=== PATIENT | male | born 1980 | race African-American/Black ===

== ENCOUNTER 2017-02-07 13:01 | Emergency (ER) | payer OTHER ==
[~2017-02-07] VITALS: Ht 170.2 cm; Wt 98.0 kg
[~2017-02-07 13:01] MED LIST: BACTRIM DS TAB1 EACH PO; IBUPROFEN 600600 M1 PO
[2017-02-07] MEDS ORDERED: BACTRIM DS TAB1 EACH PO (13:46)
[2017-02-07] MEDS ORDERED: ULTRAM 50MG TAB50 MG PO (13:46)
[2017-02-07 14:21] VITALS: BP 132/94
== END 2017-02-07 14:15 | disposition home or self-care (01) ==
LOC: ER 13:01
DX: M25.562 Pain in left knee (principal); L02.214 Cutaneous abscess of groin; D17.0 Benign lipomatous neoplasm of skin and subcutaneous tissue of head, face and neck; S76.912A Strain of unspecified muscles, fascia and tendons at thigh level, left thigh, initial encounter; S76.911A Strain of unspecified muscles, fascia and tendons at thigh level, right thigh, initial encounter; F17.210 Nicotine dependence, cigarettes, uncomplicated; J45.909 Unspecified asthma, uncomplicated; X58.XXXA Exposure to other specified factors, initial encounter; Y93.89 Activity, other specified; Y92.89 Other specified places as the place of occurrence of the external cause; Y99.8 Other external cause status

== ENCOUNTER 2017-12-03 07:21 | Emergency (ER) | payer OTHER ==
[~2017-12-03] VITALS: Ht 170.2 cm; Wt 101.2 kg
--- NOTE | ~2017-12-03 | EKG ---
[place] [address] [facility] [place] [address] ELECTROCARDIOGRAM REPORT Name: YOLI KNOTT Room [facility]: [id number] Admission: 12/03/17 Attend Phys: Discharge: 12/03/17 Date of : 80 Report #: [id number] THIS REPORT FOR: //name// [facility] ED Test Date: 2017-12-03 Test Time: 07:34:35 Pat Name: YOLI KNOTT Department: Room: Gender: Accountant Tax: [facility] : 1980 Requested By: Abundio Huang Order Number: [id number] MD: Tico Mixon Measurements Intervals [place] Rate: 68 P: 52 LA: 190 QRS: -32 QRSD: 99 T: 5 QT: 373 QTc: 397 Interpretive Statements Sinus rhythm Left axis deviation Borderline T wave abnormalities No previous ECG available for comparison Electronically Signed On 12-05-2017 8:28:26 CDT by Tico Mixon [email or web address] <ELECTRONICALLY SIGNED> By: Tico Mixon MD 12/05/17 0828 0734 0734 Tico [email or web address] MD /[email or web address]
[~2017-12-03 07:21] MED LIST changes: +ULTRAM 50MG TAB50 MG PO
[2017-12-03 08:11] LABS: ABSOLUTE NEUTROPHILS 4.2 thou/uL (1.4-8.2); BASOPHILS 0.5 % (0.0-2.0); EOSINOPHILS 1.7 % (0.0-3.0); HEMATOCRIT 48.1 % (42.0-52.0); HEMOGLOBIN 16.2 gm/dL (14.0-18.0); LYMPHOCYTES 29.3 % (24.0-44.0); MCH 29.8 pg (26.0-34.0); MCHC 33.8 g/dL (28.0-37.0); MCV 88.2 fL (80.0-100.0); MONOCYTES 10.7 % (1.0-8.0); PLATELET COUNT 117 thou/uL (150-400); POLYS 57.8 % (36.0-66.0); RBC 5.45 mil/uL (4.50-6.00); RDW 13.1 % (10.5-14.5); WBC 7.3 thou/uL (4.0-11.0)
[2017-12-03 08:14] LABS: CREATININE 1.1 mg/dL (0.7-1.3)
[2017-12-03 08:20] LABS: ALBUMIN 3.8 g/dL (3.4-5.0); TOTAL BILIRUBIN 0.8 mg/dL (<0.1-1.0); TOTAL PROTEIN 7.6 g/dL (6.4-8.2)
[2017-12-03] MEDS ORDERED: PROTONIX40 M1 PO (10:00)
[2017-12-03] MEDS ORDERED: SENNA-DOCUSATE1 EACH PO (10:00)
[2017-12-03] MEDS ORDERED: ZOFRAN4 MG PO (10:00)
[2017-12-03] MEDS ORDERED: NORCO 5-325 TA1 EACH PO (10:00)
[2017-12-03] MEDS ORDERED: CARAFATE 1 GM TA1 G1 PO (10:00)
[2017-12-03 12:42] VITALS: BP 114/82
== END 2017-12-03 12:43 | disposition home or self-care (01) ==
LOC: ER 07:21
PROVIDERS: Emergency Medicine
DX: R10.12 Left upper quadrant pain (principal); R10.13 Epigastric pain; F17.210 Nicotine dependence, cigarettes, uncomplicated; J45.909 Unspecified asthma, uncomplicated